=== PATIENT | male | born 1970 | race Caucasian/White ===

== ENCOUNTER → 2016-05-17 | Outpatient (CLI) | payer OTHER ==
[2016-05-17 10:43] LABS: Basophils % (A) 0 %; CH 30.1; CHCM 35.4; Eosinophils # (A) 0.1 k/uL (0-0.7); Eosinophils % (A) 2 %; HDW 2.96; HGB 16.4 gm/dL (13.0-17.5); Luc # (Auto) 0.17; Luc % (Auto) 3; Lymphocytes # (A) 1.9 k/uL (1.0-4.8); Lymphocytes % (A) 38 %; MCH 29.2 pg (25.0-35.0); MCHC 34.2 g/dL (31.0-37.0); MCV 85.2 fL (80.0-100.0); Mean Platelet Volume 7.5; Monocytes # (A) 0.3 k/uL (0-1.0); Monocytes % (A) 6 %; Neutrophils # (A) 2.5 k/uL (1.3-7.7); Neutrophils % (A) 50 %; RBC 5.63 m/uL (4.30-5.90); RDW 13.2 % (11.5-15.5); WBC (Perox) 5.28
[2016-05-17 11:06] LABS: ALT 81 U/L (21-72); AST 28 U/L (17-59); Alkaline Phosphatase 70 U/L (38-126); Amylase 36 U/L (30-110); Anion Gap 10 mmol/L; Blood Urea Nitrogen 15 mg/dL (9-20); Calcium 9.7 mg/dL (8.4-10.2); Carbon Dioxide 26 mmol/L (22-30); Chloride 105 mmol/L (98-107); Cholesterol 224 mg/dL (<200); Glucose 95 mg/dL (74-99); HDL Cholesterol 46 mg/dL (40-60); Non-African American GFR(MDRD) >60 (>60 ml/min/1.73 sqM); Potassium 4.5 mmol/L (3.5-5.1); Sodium 141 mmol/L (137-145); Total Bilirubin 0.6 mg/dL (0.2-1.3); Total Protein 7.5 g/dL (6.3-8.2); Triglycerides 189 mg/dL (<150)
== END | disposition home or self-care (01) ==
LOC: LABWHC1 10:06
PROVIDERS: ATTEND Family Medicine
DX: Z00.00 Encounter for general adult medical examination without abnormal findings (principal)
CPT/HCPCS: 36415; 80053; 80061; 82150; 83690; 84443; 85025

== ENCOUNTER 2020-03-07 10:13 | Day surgery (SDC) | payer BC, OTHER ==
[2020-03-05 11:28] VITALS: BMI 29.0
[~2020-03-07 10:13] MED LIST: LACTATED RINGERS 1,000 ML IV SCH; LIDOCAINE 1% (10MG/ML) FOR IV START INTRADERMA PRN
[2020-03-07 10:32] VITALS: RESP 16; TEMP 97.4
[2020-03-07] MEDS ORDERED: PROPOFOL 10 MG/ML 20 ML VIAL IV ONE (12:25)
[2020-03-07] MEDS ORDERED: LIDOCAINE 1% INJ 10MG/ML (20 ML MDV) ONE (12:25)
--- NOTE | 2020-03-07 12:42 | P.PCN ---
Date of Procedure: 03/07/20 Procedure(s) Performed: BRIEF HISTORY: Patient is a 49-year-old, pleasant, male scheduled for an upper endoscopy for evaluation of GERD and the last 2 years duration.. PROCEDURE PERFORMED: Esophagogastroduodenoscopy with biopsy. PREOPERATIVE DIAGNOSIS: Long-standing history of GERD. IV sedation per anesthesia. PROCEDURE: After informed consent was obtained, the patient was brought into the endoscopy unit. IV sedation was administered by Anesthesia under continuous monitoring. Initially the Olympus GIF-140 video endoscope was inserted into the mouth. Esophagus intubated without any difficulty. It was gradually advanced into the stomach and duodenum and carefully examined. The bulb and the second part of the duodenum appeared normal. The scope at this time was withdrawn to the stomach, adequately insufflated with air, and upon careful examination, mucosa of the antrum mild gastritis and biopsies were done from this area. The, body, cardia and the fundus appeared normal. The scope was then withdrawn into the esophagus. The GE junction was located at 39 cm from the incisors. 2 superficial erosions at the GE junction consistent with LA grade B reflux esophagitis. The rest of the esophagus appeared normal and the patient tolerated the procedure well. IMPRESSION: 1. Mild antral gastritis. 2. 2 superficial erosions at the GE junction consistent with LA grade B reflux esophagitis. RECOMMENDATIONS: The findings of this examination were discussed with the patient as well as her family. He was advised to follow with the biopsy results. She will continue with Pepcid 20 mg daily or twice daily basis in his symptoms..
[2020-03-07 13:05] VITALS: BP 129/73; PULSE 76
== END 2020-03-07 13:21 | disposition home or self-care (01) ==
LOC: ORWHC2ENDO 10:13
PROVIDERS: ATTEND Internal Medicine Gastroenterology
DX: K29.50 Unspecified chronic gastritis without bleeding (principal); K22.10 Ulcer of esophagus without bleeding; K21.9 Gastro-esophageal reflux disease without esophagitis; Z79.899 Other long term (current) drug therapy
CPT/HCPCS: 43239; 88305; J2001; J2704